=== PATIENT | male | born 1945 | race Two or more races ===

== ENCOUNTER 2020-09-24 09:57 | Outpatient (CLI) | payer OTHER | END 2020-09-24 10:07 | disposition home or self-care (01) | LOC: RAD 09:57 | PROVIDERS: ATTEND Urology | DX: N20.0 Calculus of kidney (principal) ==

== ENCOUNTER 2020-10-27 10:15 | Inpatient (IN) | payer OTHER ==
[~2020-10-27] VITALS: Ht 167.6 cm; Wt 63.5 kg
[2020-10-27] MEDS ORDERED: TAMS0.4C PO (11:44)
[2020-10-27] MEDS ORDERED: SIMVAST PO (11:45)
[2020-10-27] MEDS ORDERED: LEVOTHYROXINE25 MC2 PO (11:45)
[2020-10-27] MEDS ORDERED: ALENDRONATE PO (11:46)
[2020-11-04] MEDS ORDERED: SIMVASTATIN40 MG PO (08:11)
[2020-11-04] MEDS ORDERED: ALENDRONATE SOD10 MG PO (08:11)
== END 2020-11-05 10:24 | disposition home or self-care (01) | DRG 661 ==
LOC: EDSTATUS 10:15 → O/R 11-03 09:43 → SURH 11-03 09:43
PROVIDERS: ADMIT Urology; ATTEND Urology
PROC: BT1FZZZ Fluoroscopy of Left Kidney, Ureter and Bladder (ICD-10-PCS; 2020-11-03)
PROC: 0VTTXZZ Resection of Prepuce, External Approach (ICD-10-PCS; 2020-11-03)
PROC: 0T9430Z Drainage of Left Kidney Pelvis with Drainage Device, Percutaneous Approach (ICD-10-PCS; 2020-11-03)
PROC: 3E0F7GC Introduction of Other Therapeutic Substance into Respiratory Tract, Via Natural or Artificial Opening (ICD-10-PCS; 2020-11-03)
PROC: 0TC18ZZ Extirpation of Matter from Left Kidney, Via Natural or Artificial Opening Endoscopic (ICD-10-PCS; principal; 2020-11-03 10:00)
DX: N20.0 Calculus of kidney (principal); N47.1 Phimosis; Z20.822 Contact with and (suspected) exposure to COVID-19

== ENCOUNTER 2020-11-12 07:57 | Outpatient (CLI) | payer OTHER ==
[~2020-11-12 07:57] MED LIST: ALENDRONATE PO; ALENDRONATE SOD10 MG PO; LEVOTHYROXINE25 MC2 PO; SIMVAST PO; SIMVASTATIN40 MG PO; TAMS0.4C PO
== END 2020-11-12 08:02 | disposition home or self-care (01) ==
LOC: RAD 07:57
PROVIDERS: ATTEND Urology
DX: N20.0 Calculus of kidney (principal)